=== PATIENT | female | born 1990 | race African-American/Black ===

== ENCOUNTER 2018-12-22 09:20 | Emergency (ER) | payer OTHER ==
[~2018-12-22] VITALS: Ht 162.6 cm; Wt 58.1 kg
[2018-12-22 09:20] VITALS: BP 118/69
--- NOTE | 2018-12-22 09:20 | NUR ---
to bed # 11 ambulatory
--- NOTE | 2018-12-22 09:20 | NUR ---
BIB SELF. AAO X4 C/O NAUSEA, VOMITING, MID EPIGASTRIC ABDOMINAL PAIN, LIGHT HEADEDNESS 4/10, CONSTANT BURPING X1 WEEK. PT STATES ZANTAC WAS TAKEN LAST NIGHT WITH SOME RELIEF. PT DENIES SOB. ABDOMEN SOFT, NON TENDER TO TOUCH. ER TO EVALUATE PT.
[2018-12-22] MEDS ORDERED: ONDANSETRON 4 MG ODT PO ONE (09:35)
--- NOTE | 2018-12-22 09:56 | NUR ---
Dr. Martin evaluating patient at bedside.
[2018-12-22 10:12] VITALS: BP 105/63
--- NOTE | 2018-12-22 10:12 | NUR ---
Patient discharged with v/s stable. Written and verbal after care instructions given and explained. Patient alert, oriented and verbalized understanding of instructions. Ambulatory with steady gait. All questions addressed prior to discharge. ID band removed. Patient advised to follow up with PMD. Rx of Macrobid, Zofran given. Patient educated on indication of medication including possible reaction and side effects. Opportunity to ask questions provided and answered.
== END 2018-12-22 10:12 | disposition home or self-care (01) ==
LOC: MED 09:20
DX: O23.41 Unspecified infection of urinary tract in pregnancy, first trimester (principal); O21.8 Other vomiting complicating pregnancy; F17.200 Nicotine dependence, unspecified, uncomplicated; Z3A.01 Less than 8 weeks gestation of pregnancy
CPT/HCPCS: 81002; 81025; 99283; Q0162